=== PATIENT | male | born 1965 | race Caucasian/White ===

== ENCOUNTER 2017-09-21 12:55 | Inpatient (IN) | payer BC, OTHER | END 2017-09-21 17:47 | disposition left against medical advice (07) | DRG 894 | LOC: SRC 15:50 | PROVIDERS: ADMIT Internal Medicine; ATTEND Internal Medicine | DX: F10.10 Alcohol abuse, uncomplicated (principal); Y90.9 Presence of alcohol in blood, level not specified ==